=== PATIENT | male | born 1960 | race Caucasian/White ===

== ENCOUNTER → 2020-07-11 | Outpatient (CLI) | payer OTHER ==
--- NOTE | 2020-07-11 21:56 | CT ---
EXAMINATION TYPE: CT chest abdomen w con DATE OF EXAM: 07/11/2020 INDICATION: Rt sided pain COMPARISON: None CT DLP: 460.1 mGycm CONTRAST: Performed with Oral Contrast and with IV Contrast, patient injected with 100 mL of Isovue 300. TECHNIQUE: Axial images at 5 mm thick sections. Reconstructed images in the coronal plane. Delayed images through the kidneys. FINDINGS: CT CHEST: Portion of the thyroid visualized is normal. Extensive emphysematous changes are present through the lung lerma. No suspicious lung nodules or focal infiltrates are present. No enlarged mediastinal or hilar adenopathy is evident. The ascending aorta diameter at the level of the main pulmonary artery is 3.5 cm. The main pulmonary artery diameter at the bifurcation is 3.0 cm. There is increased density within the subareolar right breast. This may be some asymmetric gynecomast ia. Recommend ultrasound of the right breast for additional evaluation. CT ABDOMEN: Liver: Mild to moderate fatty infiltration of liver is present. Spleen: Normal Pancreas: Normal Adrenal glands: The adrenal glands are normal. Gallbladder: Normal Kidneys: No masses are evident. No hydronephrosis is present. No cysts are present. Delayed images were obtained through the kidneys, which remain unremarkable. Aorta: Vascular calcification is within the aorta. Inferior vena cava: Normal. CT PELVIS: There may be some thickening of the ascending colon at the cecum within the [id number]. Correlate for typhlitis or colitis. Additional evaluation of this region could be performed with CT of the pelv is. There are loops of bowel which are incompletely distended or lack oral contrast limiting their ev aluation. IMPRESSIONS: 1. Extensive emphysematous changes within the lung lerma. 2. Mild to moderate fatty infiltration liver. 3. Thickening of the proximal ascending colon at the edge of the calhs-ly-bgcy. Consider additional e valuation with CT pelvis. 4. Asymmetric increased density under the right subareolar breast. Recommend ultrasound for additiona l evaluation. Gynecomastia or neoplasm should be considered. A Yellow level critical message alert has been initiated for Anthony Kim MD via the [facility] Critical Results System on 07/11/2020 9:54 PM. This message alert has been sent to Anthony connolly MD via the preferences provided by the clinician for the receipt of Radiology Critical Findings . Message ID [id number].
== END | disposition home or self-care (01) ==
LOC: RADCTMAIN 12:59
PROVIDERS: ATTEND Family Medicine
DX: K76.0 Fatty (change of) liver, not elsewhere classified (principal); K63.89 Other specified diseases of intestine; N64.89 Other specified disorders of breast; J43.9 Emphysema, unspecified
CPT/HCPCS: 71260; 74160; Q9967

== ENCOUNTER → 2020-07-15 | Outpatient (CLI) | payer OTHER ==
--- NOTE | 2020-07-15 09:19 | US ---
EXAMINATION TYPE: US abdomen complete DATE OF EXAM: 07/15/2020 COMPARISON: NONE CLINICAL HISTORY: R10.11 Upper Right quadrant pain. EXAM MEASUREMENTS: Liver Length: 13.5 cm Gallbladder Wall: 0.1 cm CBD: 0.3 cm Spleen: 10.9 cm Right Kidney: 11.0 x 5.8 x 5.3 cm Left Kidney: 11.4 x 5.9 x 5.2 cm Thin patient with extensive midline bowel gas. Pancreas: Obscured by bowel gas Liver: attenuating, hyperechoic, heterogeneous Gallbladder: sludge Evidence for sonographic Joaquin's sign:no CBD: difficult to visualize Spleen: wnl Right Kidney: wnl Left Kidney: wnl Upper IVC: wnl Abd Aorta: Mostly obscured by overlying bowel gas IMPRESSION: 1. Exam is limited due to bowel gas. 2. Mild fatty infiltration of the liver 3. Debris within the gallbladder
== END | disposition home or self-care (01) ==
LOC: RADUSWWP 07:36
PROVIDERS: ATTEND Internal Medicine Gastroenterology
DX: K76.0 Fatty (change of) liver, not elsewhere classified (principal); R14.3 Flatulence
CPT/HCPCS: 76700

== ENCOUNTER → 2020-07-24 | Outpatient (CLI) | payer OTHER ==
[2020-07-24 11:56] LABS: Basophils # (A) 0.2 k/uL (0-0.2); Basophils % (A) 3 %; Eosinophils # (A) 0.1 k/uL (0-0.7); Eosinophils % (A) 1 %; Lymphocytes % (A) 19 %; MCH 39.1 pg (25.0-35.0); MCHC 34.7 g/dL (31.0-37.0); MCV 112.9 fL (80.0-100.0); Macrocytosis Marked; Mean Platelet Volume 7.6; Monocytes # (A) 0.6 k/uL (0-1.0); Monocytes % (A) 11 %; Neutrophils # (A) 3.3 k/uL (1.3-7.7); Neutrophils % (A) 64 %; Platelet Count 118 k/uL (150-450); RBC 5.24 m/uL (4.30-5.90); RDW 13.9 % (11.5-15.5); WBC 5.2 k/uL (3.8-10.6)
[2020-07-24 12:01] LABS: HCT 59.1 % (39.0-53.0); HGB 20.5 gm/dL (13.0-17.5)
[2020-07-24 13:18] LABS: Anisocytosis (M) Present; Poikilocytosis (M) Present
[2020-07-24 18:32] LABS: African American GFR (CKD) 117.2 (60.0-200.0); Albumin 4.2 g/dL (3.80-4.90); Albumin/Globulin Ratio 1.62 (1.60-3.17); Anion Gap 8.9 mmol/L (4.00-12.00); Calcium 9.6 mg/dL (8.7-10.3); Carbon Dioxide 33.1 mmol/L (21.6-31.8); Globulin 2.6 g/dL (1.6-3.3); Non-African American GFR(CKD) 101.1 (60.0-200.0); Potassium 3.8 mmol/L (3.5-5.5); Total Bilirubin 1.3 mg/dL (0.3-1.2); Total Protein 6.8 g/dL (6.2-8.2)
== END | disposition home or self-care (01) ==
LOC: LABWHC1 11:07
PROVIDERS: ATTEND Internal Medicine Gastroenterology
DX: Z09 Encounter for follow-up examination after completed treatment for conditions other than malignant neoplasm (principal); Z86.19 Personal history of other infectious and parasitic diseases
CPT/HCPCS: 36415; 80053; 85025; 87522

== ENCOUNTER 2020-08-12 10:36 | Day surgery (SDC) | payer OTHER ==
[2020-08-08 13:15] VITALS: BMI 21.7
[~2020-08-12 10:36] MED LIST: LACTATED RINGERS 1,000 ML IV SCH
[2020-08-12 10:55] VITALS: TEMP 97.8
[2020-08-12] MEDS ORDERED: LACTATED RINGERS 1,000 ML IV ONE (10:55)
[2020-08-12] MEDS ORDERED: LIDOCAINE 1% (10MG/ML) FOR IV START INTRADERMA ONE (11:09)
[2020-08-12] MEDS ORDERED: PROPOFOL 10 MG/ML 20 ML VIAL IV ONE (11:30)
[2020-08-12] MEDS ORDERED: LIDOCAINE 1% INJ 10MG/ML (20 ML MDV) ONE (11:30)
--- NOTE | 2020-08-12 11:53 | P.PCN ---
Date of Procedure: 08/12/20 Procedure(s) Performed: Brief history: Patient is a pleasant 61-year-old white male with history of chronic hep C infection of heavy alcohol abuse scheduled for an elective upper endoscopy as well as colonoscopy as a part of evaluation of severe epigastric pain associated with nausea vomiting for the last 2 months duration. Also scheduled for colonoscopy as a part of screening for colorectal neoplasia Procedure performed: Esophagogastroduodenoscopy with biopsy Colonoscopy Preoperative diagnosis: Severe epigastric pain/GERD Screening for colon cancer Anesthesia: MAC Procedure: After informed consent was obtained from the patient was brought into the endoscopy unit and IV sedation was administered by anesthesia under continuous monitoring. Initially upper endoscopy was done. The Olympus GF 160 video endoscope was inserted inserted into the mouth and esophagus intubated without any difficulty and was gradually advanced into the stomach and duodenum and carefully examined. The bulb and second part of the duodenum appeared normal. The scope was then withdrawn into the stomach adequately insufflated with air and upon careful examination the antrum had mild gastritis and biopsies were done from this area. The body, cardia and fundus appeared normal. The scope was then withdrawn into the esophagus. The GE junction was located at 40 cm to the incisors. Small sliding type hiatal hernia noted. It appeared regular with no erythema erosions or ulcerations. Rest of the esophagus appeared normal. Patient tolerated the procedure well. At this time the patient continued to remain sedation. Initial digital rectal examination was normal. Olympus CF 160 video colonoscope was then inserted into the rectum and gradually advanced to the cecum without any difficulty. Careful examination was performed as the scope was gradually being withdrawn. The prep was poor in the right colon. The cecum, ascending colon, transverse colon, descending colon, sigmoid colon and rectum appeared normal. Retroflexion was performed in the rectum and a 2 internal hemorrhoidswere noted. Patient tolerated the procedure well. Impression: 1. Upper endoscopy revealed mild antral gastritis and small hiatal hernia 2. Colonoscopy was essentially within normal limits with no evidence of colore ctal neoplasia. Residual hemorrhoids seen. Recommendations: Findings of this examination were discussed with the patient as well as his family. He was advised to follow with the biopsy results. He will continue with Prilosec 20 mg daily and follow antireflux measures. He'll be seen in office in 2 months
[2020-08-12 12:33] VITALS: BP 131/75; PULSE 81; RESP 20
== END 2020-08-12 12:52 | disposition home or self-care (01) ==
LOC: ORWHC2ENDO 10:36
PROVIDERS: ATTEND Internal Medicine Gastroenterology
DX: Z12.11 Encounter for screening for malignant neoplasm of colon (principal); K29.70 Gastritis, unspecified, without bleeding; K21.9 Gastro-esophageal reflux disease without esophagitis; K44.9 Diaphragmatic hernia without obstruction or gangrene; K64.8 Other hemorrhoids; B18.2 Chronic viral hepatitis C; F10.10 Alcohol abuse, uncomplicated; J44.9 Chronic obstructive pulmonary disease, unspecified; F17.200 Nicotine dependence, unspecified, uncomplicated; Z79.51 Long term (current) use of inhaled steroids
CPT/HCPCS: 43239; 88305; G0121; J2001; J2704; 45378

== ENCOUNTER → 2020-11-20 | Outpatient (CLI) | payer OTHER ==
[2020-11-20 22:41] LABS: African American GFR (CKD) 105.7 (60.0-200.0); Anion Gap 12.1 mmol/L (4.00-12.00); Calcium 9.6 mg/dL (8.7-10.3); Carbon Dioxide 24.9 mmol/L (21.6-31.8); Non-African American GFR(CKD) 91.2 (60.0-200.0)
== END | disposition home or self-care (01) ==
LOC: LABWHC1 13:06
PROVIDERS: ATTEND Student in an Organized Health Care Education/Training Program
DX: E87.6 Hypokalemia (principal)
CPT/HCPCS: 36415; 80048

== ENCOUNTER → 2020-11-29 | Outpatient (CLI) | payer OTHER ==
[2020-11-29 21:11] LABS: Basophils # (A) 0.04 X 10*3/uL (0.00-0.10); Basophils % (A) 0.5 %; Eosinophils # (A) 0.09 X 10*3/uL (0.04-0.35); Eosinophils % (A) 1.1 %; HCT 47.1 % (39.6-50.0); Lymphocytes # (A) 1.95 X 10*3/uL (0.90-5.00); Lymphocytes % (A) 22.9 %; MCH 33.2 pg (27.0-32.0); MCV 97.7 fL (80.0-97.0); Mean Platelet Volume 9.7 fL (9.5-12.2); Monocytes # (A) 1.04 X 10*3/uL (0.20-1.00); Monocytes % (A) 12.2 %; Neutrophils # (A) 5.36 X 10*3/uL (1.80-7.70); Neutrophils % (A) 63.1 %; Platelet Count 258 X 10*3/uL (140-440); RBC 4.82 X 10*6/uL (4.40-5.60); RDW 14.2 % (11.5-14.5)
[2020-11-30 00:54] LABS: Albumin 4.1 g/dL (3.80-4.90); Albumin/Globulin Ratio 1.86 (1.60-3.17); Anion Gap 7.9 mmol/L (4.00-12.00); BUN/Creat Ratio 8.75 Ratio (12.00-20.00); Calcium 9.4 mg/dL (8.7-10.3); Carbon Dioxide 28.1 mmol/L (21.6-31.8); Globulin 2.2 g/dL (1.6-3.3); Non-African American GFR(CKD) 95.7 (60.0-200.0); Potassium 3.8 mmol/L (3.5-5.5); Total Bilirubin 0.7 mg/dL (0.2-1.2); Total Protein 6.3 g/dL (6.2-8.2)
== END | disposition home or self-care (01) ==
LOC: LABWHC1 10:49
PROVIDERS: ATTEND Internal Medicine Gastroenterology
DX: B18.2 Chronic viral hepatitis C (principal)
CPT/HCPCS: 36415; 80053; 82105; 85025

== ENCOUNTER → 2023-06-16 | Outpatient (CLI) | payer OTHER ==
--- NOTE | 2023-06-16 13:23 | CT ---
EXAMINATION TYPE: CT chest w con DATE OF EXAM: 06/16/2023 COMPARISON: 07/11/2020 HISTORY: hemoptysis [id number] CT DLP: 208.60 mGycm Automated exposure control for dose reduction was used. CONTRAST: CT scan of the chest is performed with IV Contrast, patient injected with 100 mL of Isovue 300. FINDINGS: LUNGS: There is severe centrilobular emphysema noted. The lungs are grossly clear, there is no concer joseph parenchymal mass or nodule identified. There is no pleural effusion or pneumothorax seen. The tracheobronchial tree is patent. MEDIASTINUM: There are no greater than 1 cm hilar or mediastinal lymph nodes. No pericardial effusi on is seen. Thoracic aorta is of normal caliber. The heart is not enlarged. UPPER ABDOMEN: No significant abnormality appreciated. OTHER: Small layering gallstones identified. IMPRESSION: 1. No concerning pulmonary nodule, infiltrate or mass. 2. Severe centrilobular emphysema.
== END | disposition home or self-care (01) ==
LOC: RADCTMAIN 12:23
PROVIDERS: ATTEND Internal Medicine Critical Care Medicine
DX: J43.2 Centrilobular emphysema (principal); R04.2 Hemoptysis
CPT/HCPCS: 71260; Q9967